=== PATIENT | male | born 1940 | race Caucasian/White ===

== ENCOUNTER → 2021-11-10 | Outpatient (CLI) | payer MEDICARE ==
[~2021-11-10] MED LIST: ELIQUIS2.5 MG PO; GABAPENTIN800 MG PO; LIPITOR TAB 2020 MG PO; PERCOCET 5-3251 EACH PO; PRINIVIL10 MG PO; TOPROL XL25 MG PO
== END ==
LOC: HEART CORB 11-03 13:30
DX: I08.0 Rheumatic disorders of both mitral and aortic valves (principal)